=== PATIENT | male | born 1985 | race Two or more races ===

== ENCOUNTER 2024-09-24 10:03 | Emergency (ER) | payer OTHER, SELFPAY ==
[2024-09-24 10:11] VITALS: BP 131/79; PULSE 80; RESP 18; TEMP 36.8; O2SAT 97; BMI 24.1
--- NOTE | 2024-09-24 10:18 | EDNOTE_ITS ---
ED Male Genitalurinary RME/HPI General Chief complaint: Urogenital-Male Stated complaint: WHEN I URINATE IT CHENG X 2 DAYS Time Seen by Provider: 09/24/24 10:19 Source: patient Arrival date/time: 09/24/24 10:03 39-year-old male with no known medical history presents to the emergency room with a chief complaint of dysuria x 2 days Mode of arrival: ambulatory Limitations: no limitations Related Data Allergies Allergy/AdvReac Type Severity Reaction Status Date / Time No Known Allergies Allergy Verified 09/24/24 10:06 Review of Systems Review of Systems Systems Reviewed: All systems reviewed, normal except as documented Constitutional Constitutional: Reports system reviewed and no additional complaints, except as documented, Denies fatigue, Denies fever(s), Denies headache(s) and Denies weakness Eyes Eyes: Reports system reviewed and no additional complaints, except as documented, Denies blurry vision and Denies change in vision ENT Ears, Nose, Mouth, and Throat: Reports system reviewed and no additional complaints, except as documented, Denies otalgia, Denies headache(s), Denies nasal congestion, Denies throat swelling and Denies vertigo Cardiovascular Cardiovascular: Reports system reviewed and no additional complaints, except as documented, Denies chest pain, Denies dyspnea and Denies dyspnea on exertion Respiratory Respiratory: Reports system reviewed and no additional complaints, except as documented, Denies chest congestion, Denies cough, Denies dyspnea, Denies dyspnea on exertion and Denies wheezing Gastrointestinal Gastrointestinal: Reports system reviewed and no additional complaints, except as documented, Denies abdominal pain, Denies cramping, Denies nausea and Denies vomiting Genitourinary Genitourinary: Reports system reviewed and no additional complaints, except as documented, Reports dysuria and Denies hematuria Musculoskeletal Musculoskeletal: Reports system reviewed and no additional complaints, except as documented and Denies back pain Integumentary/Breasts Skin/Breast: Reports system reviewed and no additional complaints, except as documented and Denies wounds Neurologic Neurologic: Reports system reviewed and no additional complaints, except as do cumented, Denies confusion, Denies headache(s), Denies lack of coordination, Denies vertigo and Denies weakness Psychiatric Psychiatric: Reports system reviewed and no additional complaints, except as documented, Denies anxiety, Denies confusion, Denies depression, Denies paranoia, Denies suicidal ideation and Denies tactile hallucinations Endocrine Endocrine: Reports system reviewed and no additional complaints, except as documented and Denies fatigue Hematologic/Lymphatic Hematologic/Lymphatic: Reports system reviewed and no additional complaints, except as documented and Denies lymphadenopathy Allergic/Immunologic Allergic/Immunologic: Reports system reviewed and no additional complaints, except as documented, Denies throat swelling, Denies urticaria and Denies wheezing ED Exam General Limitations: Present no limitations General appearance: Present alert and in no apparent distress Head Head exam: Present atraumatic Eye Eye exam: Present normal appearance, PERRL and EOMI ENT ENT exam: Present normal exam, normal oropharynx and mucous membranes moist Neck Neck exam: Present normal inspection, full ROM and trachea midline Chest Chest inspection: Present normal inspection and symmetric chest wall rise Respiratory Respiratory exam: Present normal lung sounds bilaterally Cardiovascular Cardiovascular exam: Present regular rate, normal rhythm and normal heart sounds Abdominal Exam Abdominal exam: Present soft and normal bowel sounds; Absent distention, tenderness, guarding, rebound or rigidity Extremities Exam Extremities exam: Present normal inspection and full ROM Back Exam Back exam: Present normal inspection and full ROM Neurological Exam Neurological exam: Present alert, oriented X3 and CN II-XII intact Psychiatric Psychiatric exam: Present normal affect and normal mood Skin Skin exam: Present warm, dry, intact and normal color Course Quality Measures none Orders Category Date Time Status Chlamydia/GC/TV - PCR Stat Lab 09/24/24 11:15 Received Syphilis Stat Lab 09/24/24 10:44 Completed UA, C/S IF [Urinalysis, C/S if Indicated] Stat Lab 09/24/24 11:15 Completed cefTRIAXone [Rocephin] 1,000 mg Med 09/24/24 12:17 Discontinued Lidocaine 1% 20 ml [Xylocaine 1% 20 ML] 2.1 ml IM X1 Vital Signs Vital signs: Vital Signs Temperature 98.3 F 09/24/24 10:11 Pulse Rate 80 09/24/24 10:11 Respiratory Rate 18 09/24/24 10:11 Blood Pressure 131/79 H 09/24/24 10:11 Pulse Oximetry (%) 97 09/24/24 10:11 Oxygen Delivery Method Room Air 09/24/24 10:11 O2 saturation 97% within normal limits Urogenital - Male MDM Narrative MDM Narrative:: 39-year-old male with no known medical history presents to the emergency room with a chief complaint of dysuria x 2 days Patient is hemodynamically stable and in no distress. Abdomen is soft and nontender there is no nausea vomiting or diarrhea. Urinalysis was completed and was negative for any urinary tract infection. STD panel was negative Patient was educated to follow-up with primary care provider and return to the emergency room for any evidence of worsening signs or symptoms Patient data External records reviewed:: [facility] previous records Clinical information provided by:: patient Social determinants that could affect healthcare access:: none Patient has the following chronic illnesses:: No chronic illness How is presenting disease/condition affected by chronic disease/condition?: no chronic disease Evaluation data The following diagnostics were reviewed and interpreted by me:: lab results and radiology exam(s) Lab and/or radiology exams considered but not ordered:: Labs and radiology exams considered and ordered Interpretation Summary: N/A Medications / Prescriptions Medications or Prescriptions considered but not ordered:: Medication given Medication administrations:: Medication Administration History Discontinued Medications Ceftriaxone Sodium 1,000 mg/ (Lidocaine HCl 2.1 ml) 0 mg IM X1 ONE Stop: 09/24/24 12:18 Last Admin: 09/24/24 13:46 Dose: 1,000 mg Documented By: Medication given Consultations Consultation(s) initiated? (list below): No Diagnosis Urogenital Male Differential Diagnosis: urinary tract infection, acute retention of urine and other (Dysuria) Most likely diagnosis given after review of the tests above:: Dysuria Admission Indicated Admission indicated?: not indicated Admission Request Was there a request for admission?: No Disposition Plan Disposition Plan: Discharge Discharge Attestation Discharge Attestation: The patient and all family members were given an opportunity to ask questions and understood the discharge instructions. Discharge instructions specifically effects, indications for sooner follow up or return to the emergency department, and the expected course of current diagnosis. Patient condition: Stable Discharge Plan Plan Patient Disposition: HOME (Self Care) Disposition Comment: Stable Prescriptions/Referrals Referrals: No Primary/Family,Physician [Primary Care Provider] - In 1 week Problem List Clinical Impression: Dysuria Patient/Caregiver Discharge Instructions Education Materials: ED Dysuria, Uncertain Cause (Adult) Additional Instructions: Moreno un seguimiento con shell proveedor de atenci?n primaria en las pr?ximas 24 a 48 horas. El an?lisis de orina fue negativo para cualquier infecci?n del tracto urinario. Si hay evidencia de signos o s?ntomas que empeoran, regrese a la mal de emergencias de inmediato. Print Language: Wallisian Stand Alone Forms: [employer] Award Info., Patient Portal Info Letter PA/ASSISTANT PROFESSOR OF BIOCHEMISTRY Supervising Physician PA/ASSISTANT PROFESSOR OF BIOCHEMISTRY Supervising Physician: Dr. Pina
[2024-09-24 11:23] LABS: Collection Type, Urine Clean Catch; Squamous Epithelial Cell,Urine 0 /hpf (0-5)
[2024-09-24 11:37] LABS: Bilirubin,Urine Negative (Negative); Blood,Urine Negative (Negative); Clarity,Urine Clear (Clear/Hazy); Color,Urine Lt-Yellow (Lt Yel-Yel); Culture Indicated,Urine Not Indicated; Glucose, Urine Negative (Negative); Ketones,Urine Negative (Negative); Leukocyte Esterase,Urine Negative (Negative); Nitrite,Urine Negative (Negative); Protein,Urine Negative (Neg - Trace); RBC,Urine 2 /hpf (0-3); Specific Gravity,Urine 1.013 (1.001-1.035); Urobilinogen,Urine Negative mg/dL (0.0-1.0); WBC,Urine 3 /hpf (0-5)
[2024-09-24 11:57] LABS: Syphilis Nonreactive (Nonreactive)
[2024-09-24] MEDS: cefTRIAXone 1,000 MG, LIDOCAINE 1% 20 ML 2.1 ML IM (13:46)
[2024-09-25 09:44] LABS: Chlamydia trachomatis PCR Positive (Not Detect); Neisseria Gonorrhoeae DNA PCR Negative (Not Detect); Trichomonas Negative (Negative)
== END 2024-09-24 13:51 | disposition home or self-care (01) ==
PROVIDERS: Nurse Practitioner Family; Emergency Provider Emergency Medicine
DX: R30.0 Dysuria (principal)
CPT/HCPCS: 36415; 81001; 86780; 87491; 87591; 87661; 96372; 99283; J0696; J3490